=== PATIENT | female | born 2000 | race Two or more races ===

== ENCOUNTER 2018-01-30 10:05 | Emergency (ER) | payer OTHER ==
[~2018-01-30] VITALS: Ht 157.5 cm; Wt 61.1 kg
[2018-01-30] MEDS ORDERED: DEXAMETHASONE 4 MG TABLET ONE (10:59)
[2018-01-30] MEDS ORDERED: DEXAMETHASONE 4 MG TABLET PO ONE (11:00)
[2018-01-30 11:08] LABS: BASOPHILS % (AUTO) 0 % (0-1); EOSINOPHILS # (AUTO) 0.01 x10^3/uL (0-0.8); EOSINOPHILS % (AUTO) 0 % (1-7); LYMPHOCYTES # (AUTO) 0.63 x10^3/uL (1-6.1); LYMPHOCYTES % (AUTO) 10 % (22-44); MD NO; MEAN CORPUSCULAR HEMOGLOBIN 24.8 pg (27.0-34.8); MEAN CORPUSCULAR HGB CONC 32.9 g/dL (32.4-35.8); MEAN CORPUSCULAR VOLUME 75.4 fL (80-100); MEAN PLATELET VOLUME 9.4 fL (7.4-10.4); MONOCYTES # (AUTO) 0.78 x10^3/uL (0-1.4); MONOCYTES % (AUTO) 12 % (2-9); NEUTROPHILS # (AUTO) 5.08 x10^3/uL (1.8-8.0); NEUTROPHILS % (AUTO) 78 % (42-75); PLATELET COUNT 227 x10^3/uL (130-400); RED BLOOD COUNT 4.69 x10^6/uL (3.82-5.3); RED CELL DISTRIBUTION WIDTH 17.3 % (9.6-15.2)
[2018-01-30] MEDS ORDERED: ACETAMINOPHEN 500 MG TABLET PO ONE (12:00)
[2018-01-30] MEDS ORDERED: ACETAMINOPHEN 500 MG TABLET ONE (12:56)
[2018-01-30] MEDS ORDERED: SODIUM CHLORIDE FLUSH 10ML SYR IVF ONE (13:00)
[2018-01-30] MEDS ORDERED: AMPICILLIN/SULBACTAM 3 GM in SODIUM CHLORIDE 0.9% 100 ML IV ONE (13:00)
[2018-01-30] MEDS ORDERED: SODIUM CHLORIDE 0.9% 1,000ML IVBOLUS ONE ×2 (13:00)
[2018-01-30 14:46] VITALS: BP 118/72
== END 2018-01-30 14:48 | disposition home or self-care (01) ==
LOC: ED 14:00
DX: J03.00 Acute streptococcal tonsillitis, unspecified (principal); J03.01 Acute recurrent streptococcal tonsillitis
CPT/HCPCS: 36415; 85025; 86308; 96365; 96375; 99284; J0295; J7030

== ENCOUNTER 2021-01-19 09:44 | Emergency (ER) | payer OTHER ==
[~2021-01-19] VITALS: Ht 157.5 cm; Wt 64.3 kg
--- NOTE | 2021-01-19 10:16 | NUR ---
SMALL LACERATION NOTED PALM SIDE OR 3RD RIGHT DIGIT. NO BLEEDING AT THIS TIME. PT PROVIDED CALL LIGHT, FAMILY AT BEDSIDE. PT STATES SHE HAS A HISTORY OF HAVING SEIZURES WHEN SHE EXPERIENCES PAIN. PT STATES WHEN SHE TOOK BAND-AID OFF LACERATION SHE PASSED OUT AND THEN FAMILY STATES HER LEGS WERE SHAKING FOR 3 SECONDS. AWAITING FOR EVAL.
[2021-01-19] MEDS ORDERED: LIDOCAINE 1%-EPI 1:100K, 20ML INFIL ONE (10:30)
[2021-01-19 10:51] LABS: BASOPHILS % (AUTO) 0 % (0-1); EOSINOPHILS % (AUTO) 0 % (1-7); LYMPHOCYTES % (AUTO) 18 % (22-44); MEAN CORPUSCULAR HEMOGLOBIN 31.7 pg (27.0-34.8); MEAN CORPUSCULAR HGB CONC 33.9 g/dL (32.4-35.8); MEAN PLATELET VOLUME 8.6 fL (7.4-10.4); MONOCYTES % (AUTO) 8 % (2-9); NEUTROPHILS % (AUTO) 73 % (42-75); PLATELET COUNT 173 x10^3/uL (130-400); RED BLOOD COUNT 4.62 x10^6/uL (3.82-5.3)
[2021-01-19 11:00] LABS: ANION GAP 5 mmol/L (5-15); CALCIUM 8.5 mg/dL (8.5-10.1); CHLORIDE 108 mmol/L (98-107); CREATININE 0.67 mg/dL (0.55-1.02)
--- NOTE | 2021-01-19 11:11 | NUR ---
EXTRACTOR OPERATOR SOLVENT PROCESS AT BS FOR RING REMOVAL. SUTURE SET-UP AT BS.
[2021-01-19 11:14] VITALS: BP 93/59
[2021-01-19] MEDS ORDERED: NEOSPORIN OINT. PKT 1 PACKET ONE (11:49)
--- NOTE | 2021-01-19 11:55 | NUR ---
SUTURED WOUND CLEANED AND BACITRACIN OINTMENT PLACED AND BANDAID. PT GIVEN DISCHARGE INSTRUCTIONS. AMBULATED TO DISCHARGE WINDOW STEADY GAIT
== END 2021-01-19 11:57 | disposition home or self-care (01) ==
LOC: ED 10:27
DX: S61.212A Laceration without foreign body of right middle finger without damage to nail, initial encounter (principal); R55 Syncope and collapse; W25.XXXA Contact with sharp glass, initial encounter; Y93.89 Activity, other specified; Y92.69 Other specified industrial and construction area as the place of occurrence of the external cause; Y99.8 Other external cause status
CPT/HCPCS: 36415; 80048; 82040; 85025; 93005; 99285